=== PATIENT | female | born 1990 | race Caucasian/White ===

== ENCOUNTER → 2018-12-12 | Outpatient (CLI) | payer BC ==
--- NOTE | 2018-12-12 13:29 | MRI ---
EXAM DESCRIPTION: Brain w/oContrast CLINICAL HISTORY: G44.52 headaches COMPARISON: None available TECHNIQUE: Non contrast MRI of the brain is performed according to our usual protocol including multiplanar multi sequence technique. FINDINGS: Sagittal T1 images show intact corpus callosum. Normal pituitary gland with normal T1 appearance of the maddison and medulla and upper cervical cord. Normal signal intensity within the clivus and calvarium. Axial T2 fat sat images reveal preservation of intracranial vascular flow voids. Normal meng matter and white matter T2 signal intensity. Normal ventricles with normal gyral and sulcal fold pattern. The globes appear intact and symmetrical. No abnormal fluid signal in the paranasal sinuses, tympanic cavities or mastoid air cells. Axial flair images show normal signal intensity of the meng matter and the white matter. No microvascular ischemic changes. Diffusion weighted images are negative for focal intense increased signal intensity in the brain parenchyma to suggest restricted diffusion. ADC mapping is negative. Axial T1 images show normal meng-white matter differentiation. No high signal intensity hemorrhagic lesion of the brain parenchyma. No subdural hematoma. Axial susceptibility weighted images are negative for focal signal loss to suggest abnormal brain parenchymal calcification or hemosiderin deposition. IMPRESSION: Normal MRI examination of the brain without contrast. Electronically signed by: Epifanio Torres MD 12/12/2018 1:27 PM CDT
== END ==
LOC: MRI 10:58
PROVIDERS: ATTEND Nurse Practitioner
DX: G44.52 New daily persistent headache (NDPH) (principal)

== ENCOUNTER → 2019-12-13 | Outpatient (CLI) | payer BC ==
--- NOTE | 2019-12-14 07:39 | MRI ---
Study: MRI of the Right Shoulder. Indication: PAIN Technique: Multiplanar, multi sequence MRI of the right shoulder was obtained without intravenous contrast. Comparison: None. Findings: AC joint normal. Type I acromion. Small-volume subacromial/subdeltoid bursal fluid. High-grade supraspinatus and infraspinatus tendinosis with scattered bursal surface fraying and interstitial fissuring throughout supraspinatus tendon. Subscapularis and teres minor tendons intact. Mild edema tracking along the posterior/deep margins of the infraspinatus myotendinous junction. No atrophy or fatty infiltration rotator cuff musculature. Long head biceps tendon intact. Subtle free edge fraying truncation of the posterior labrum. No full-thickness labral tear. No acute fracture or advanced glenohumeral joint osteoarthritis. Impression: High-grade supraspinatus and infraspinatus tendinosis with scattered bursal drain and interstitial fissuring throughout the supraspinatus tendon. Free edge truncation and fraying posterior labrum. Small-volume subacromial/subdeltoid bursal fluid. Electronically signed by: Stephen Estrada MD 12/14/2019 7:38 AM CDT
== END ==
LOC: MRI 09:48
PROVIDERS: ATTEND Nurse Practitioner
DX: M75.91 Shoulder lesion, unspecified, right shoulder (principal); M67.911 Unspecified disorder of synovium and tendon, right shoulder; S43.431A Superior glenoid labrum lesion of right shoulder, initial encounter; M71.811 Other specified bursopathies, right shoulder